=== PATIENT | male | born 1980 | race Caucasian/White ===

== ENCOUNTER 2020-06-20 23:12 | Emergency (ER) | payer SELFPAY ==
[~2020-06-20] VITALS: Ht 180.3 cm; Wt 115.7 kg
[2020-06-20 23:28] VITALS: BP 182/117
== END 2020-06-20 23:40 | disposition left against medical advice (07) ==
LOC: ED 23:12
DX: F10.129 Alcohol abuse with intoxication, unspecified (principal)